=== PATIENT | male | born 1975 | race Caucasian/White ===

== ENCOUNTER 2021-01-11 19:29 | Emergency (ER) | payer OTHER ==
[2021-01-11] MEDS ORDERED: DIPH,PERTUS(ACELL)TETVAC-LF 0.5 ML VIAL IM ONE (20:47)
[2021-01-11] MEDS ORDERED: LIDOCAINE 1% INJ 10MG/ML (20 ML MDV) SQ ONE (20:47)
--- NOTE | 2021-01-11 20:49 | ED ---
General Adult HPI - General Source: patient, RN notes reviewed Mode of arrival: ambulatory Limitations: no limitations <Jackson Ibarra - Last Filed: 01/11/21 20:48> - History of Present Illness Onset/Timin -: hour(s) Location: left, lower extremity Radiation: non-radiation Severity scale (1-10): 4 Quality: sharp Consistency: constant Improves with: none Worsens with: none Associated Symptoms: denies other symptoms Treatments Prior to Arrival: none <Per Mcginnis - Last Filed: 01/13/21 13:52> - General Stated complaint: l leg cut by [place] Time Seen by Provider: 01/11/21 20:25 - History of Present Illness Initial comments: This a 46-year-old male presents emergency Department chief complaint of left leg laceration. Patient states that he was cutting brush the chainsaw and it kicked back causing laceration to his left leg. This happened approximately 8 hours ago. He is unsure when his last tetanus was. Patient states bleeding is controlled. (Jackson Ibarra) - Related Data Allergies Allergy/AdvReac Type Severity Reaction Status Date / Time No Known Allergies Allergy Verified 01/11/21 20:50 Review of Systems ROS Other: All systems not noted in ROS Statement are negative. <Jackson Ibarra - Last Filed: 01/11/21 20:48> ROS Other: All systems not noted in ROS Statement are negative. Constitutional: Denies: fever, chills Skin: Reports: as per HPI (Laceration) Neurological: Denies: weakness, numbness Hematological/Lymphatic: Denies: easy bleeding <Per Mcginnis - Last Filed: 01/13/21 13:52> ROS Statement: Those systems with pertinent positive or pertinent negative responses have been documented in the HPI. General Exam General appearance: alert, in no apparent distress Head exam: Present: atraumatic, normocephalic Extremities exam: Present: other (Laceration, see below) Neurological exam: Present: alert. Absent: motor sensory deficit (Throughout the left lower extremity) Skin exam: Present: warm, dry, normal color, other (There is an approximately 6 cm laceration to the left pretibial area.) <Per Mcginnis - Last Filed: 01/13/21 13:52> Course Vital Signs 01/11/21 20:47 Temperature 98.3 F Pulse Rate 87 Respiratory 20 Rate Blood Pressure 122/81 O2 Sat by Pulse 99 Oximetry Procedures - Laceration Laceration #1 Consent Obtained: verbal consent Indication: laceration Site: lower extremity Size (cm): 7 Description: linear Depth: simple, single layer Anesthetic Used: lidocaine 1% Anesthesia Technique: local infiltration Type of Sutures: nylon Size of Sutures: 4-0 Number of Sutures: 8 Technique: simple, interrupted Patient Tolerated Procedure: well, no complications <Per Mcginnis - Last Filed: 01/13/21 13:52> Medical Decision Making <Per Mcginnis - Last Filed: 01/13/21 13:52> - Medical Decision Making I saw this patient in conjunction with the physician phlebotomist lab assistant. I performed in dependent history and physical exam. Agree with case management. (Per Mcginnis) Disposition <Jackson Ibarra - Last Filed: 01/11/21 20:48> Is patient prescribed a controlled substance at d/c from ED?: No <Per Mcginnis - Last Filed: 01/13/21 13:52> Clinical Impression: Laceration Disposition: HOME SELF-CARE Condition: Good Instructions (If sedation given, give patient instructions): Laceration (ED) Referrals: [facility],Clinic [Primary Care Provider] - 1-2 days
[2021-01-11 20:50] VITALS: BP 122/81; PULSE 87; RESP 20; TEMP 98.3
--- NOTE | 2021-01-11 21:48 | XR ---
EXAMINATION TYPE: XR knee complete LT DATE OF EXAM: 01/11/2021 COMPARISON: NONE HISTORY: . Laceration. Chainsaw injury. TECHNIQUE: AP, oblique, and lateral views of the left knee. FINDINGS: No acute fracture. No dislocation. Joint spaces and alignment are normal. Normal mineraliza tion. There is soft tissue irregularity of the infrapatellar anterior knee. IMPRESSION: Infrapatellar anterior knee soft tissue irregularity. No acute osseous abnormality.
== END 2021-01-11 22:38 | disposition home or self-care (01) ==
LOC: EC 19:29
DX: S81.812A Laceration without foreign body, left lower leg, initial encounter (principal); Z23 Encounter for immunization; W29.3XXA Contact with powered garden and outdoor hand tools and machinery, initial encounter
CPT/HCPCS: 73562; 90715; 12002; 90471; 99283; J2001

== ENCOUNTER → 2022-04-06 | Outpatient (CLI) | payer OTHER ==
--- NOTE | 2022-04-06 17:34 | MR ---
EXAMINATION TYPE: MR knee RT wo/w con DATE OF EXAM: 04/06/2022 COMPARISON: None HISTORY: Right knee pain. CONTRAST: Standard multiplanar, multisequence MRI departmental protocol images were obtained without contrast a nd with 7.5 mL intravenous Gadavist gadolinium contrast. Multiplanar multi echo imaging of the right knee performed without and with the IV contrast. The anterior and posterior cruciate ligaments are intact. The collateral ligaments are intact no frac ture seen. There is small knee joint effusion. The medial and lateral menisci appear fairly normal. There is a 2 cm lobulated sharply marginated low signal lesion on the T1 images in the distal femoral metaphysis. This has increased fluid signal on the proton density images and could be bone cyst. The re is no pathologic enhancement. IMPRESSION: No evidence of meniscal or ligamentous tear. Mild knee joint effusion consistent with some nonspecifi c synovitis. No fracture. Lobulated bone cyst in the distal femoral metaphysis.
== END | disposition home or self-care (01) ==
LOC: RADMRIMAIN 13:35
PROVIDERS: ATTEND Physician Assistant Medical
DX: M85.661 Other cyst of bone, right lower leg (principal); M25.461 Effusion, right knee
CPT/HCPCS: 73723; A9585